=== PATIENT | female | born 1995 | race Caucasian/White ===

== ENCOUNTER 2022-07-14 08:16 | Emergency (ER) | payer BC ==
[~2022-07-14] VITALS: Ht 167.6 cm; Wt 73.0 kg
[2022-07-14] MEDS ORDERED: ACETAMINOPHEN 325MG TABLET PO STA (08:31)
[2022-07-14] MEDS ORDERED: ACETAMINOPHEN 325MG TABLET PO NR (10:15)
[2022-07-14 10:32] VITALS: BP 112/67
== END 2022-07-14 11:46 | disposition left against medical advice (07) ==
LOC: ER 08:16
DX: O26.892 Other specified pregnancy related conditions, second trimester (principal); B34.9 Viral infection, unspecified; J02.9 Acute pharyngitis, unspecified; Z20.822 Contact with and (suspected) exposure to COVID-19; Z3A.21 21 weeks gestation of pregnancy; Z88.0 Allergy status to penicillin
CPT/HCPCS: 81025; 87070; 87426; 87430; 93005; 93970; 99285; C9803